=== PATIENT | female | born 1980 | race Two or more races ===

== ENCOUNTER 2022-07-14 10:45 | Inpatient (IN) | payer OTHER ==
[~2022-07-14] VITALS: Ht 165.1 cm; Wt 93.0 kg
[~2022-07-14 10:45] MED LIST: INTEGRA PLUS C1 EACH PO
[2022-07-16] MEDS ORDERED: MEDROXYPRO150 MG/11 (13:33)
[2022-07-18] MEDS ORDERED: SURFAK240 M1 PO (11:55)
[2022-07-18] MEDS ORDERED: IBU800 MG PO (11:55)
[2022-07-18] MEDS ORDERED: INTEGRA PLUS C1 EACH PO (11:55)
== END 2022-07-18 12:36 | disposition home or self-care (01) | DRG 743 ==
LOC: O/R 07-16 06:15 → SURH 07-16 07:00 → OB/GYN 07-16 16:46
PROVIDERS: ADMIT Obstetrics & Gynecology; ATTEND Obstetrics & Gynecology
PROC: 0UT70ZZ Resection of Bilateral Fallopian Tubes, Open Approach (ICD-10-PCS; 2022-07-16)
PROC: 0UT00ZZ Resection of Right Ovary, Open Approach (ICD-10-PCS; 2022-07-16)
PROC: 0UT90ZZ Resection of Uterus, Open Approach (ICD-10-PCS; principal; 2022-07-16 07:00)
DX: D25.9 Leiomyoma of uterus, unspecified (principal); N72 Inflammatory disease of cervix uteri; N83.01 Follicular cyst of right ovary; Z20.822 Contact with and (suspected) exposure to COVID-19